=== PATIENT | female | born 1990 | race African-American/Black ===

== ENCOUNTER 2024-09-10 13:26 | Emergency (ER) | payer OTHER ==
[~2024-09-10] VITALS: Ht 167.6 cm; Wt 52.2 kg
[2024-09-10 14:49] VITALS: BP 124/74; O2SAT 99
== END 2024-09-10 14:30 | disposition home or self-care (01) ==
LOC: EDBD 13:26 → ER 13:26
DX: J00 Acute nasopharyngitis [common cold] (principal); H92.01 Otalgia, right ear
CPT/HCPCS: A4606; A4663

== ENCOUNTER 2025-01-18 12:34 | Emergency (ER) | payer MEDICAID, OTHER ==
[~2025-01-18] VITALS: Ht 167.6 cm; Wt 52.2 kg
[2025-01-18 12:42] VITALS: BP 108/62
[2025-01-18 13:59] LABS: *BILIRUBIN,URIN NEGATIVE (NEGATIVE); *BLOOD, URINE NEGATIVE (NEGATIVE); *CLARITY,URINE CLEAR (CLEAR); *COLOR,URINE YELLOW (YELLOW); *KETONES,URINE TRACE (NEGATIVE); *PROTEIN,URINE NEGATIVE (NEGATIVE); *UROBILINOGEN,URINE 0.2 E.U./dl (NORMAL); LEUKOCYTE ESTERASE ,URINE NEGATIVE (NEGATIVE); NITRITE, URINE NEGATIVE (NEGATIVE); UGLUCOSE NEGATIVE (NEGATIVE)
[2025-01-18 14:02] LABS: SQUAMOUS EPITHELIAL CELL,UR FEW /HPF (NONE SEEN); URINE AMORPHOUS URATE FEW /HPF
[2025-01-18 14:03] LABS: *URINE HCG, QUAL NEGATIVE (NEGATIVE)
[2025-01-18] MEDS ORDERED: FLUC150T PO (14:10)
[2025-01-18 14:34] VITALS: BP 110/68; TEMP 207.9; O2SAT 99
== END 2025-01-18 14:05 | disposition home or self-care (01) ==
LOC: ER 12:34
DX: B37.31 Acute candidiasis of vulva and vagina (principal)
CPT/HCPCS: 84703; A4606; A4663

== ENCOUNTER 2025-02-06 12:30 | Emergency (ER) | payer OTHER ==
[~2025-02-06] VITALS: Ht 167.6 cm; Wt 59.0 kg
[~2025-02-06 12:30] MED LIST: FLUC150T PO
[2025-02-06 12:40] VITALS: BP 128/88
[2025-02-06] MEDS ORDERED: ACET-2605 PO (12:58)
[2025-02-06] MEDS ORDERED: SULF1TAB48 PO (12:58)
[2025-02-06 13:10] VITALS: BP 128/88; TEMP 98; O2SAT 99
== END 2025-02-06 13:10 | disposition home or self-care (01) ==
LOC: ER 12:30
DX: S80.11XA Contusion of right lower leg, initial encounter (principal); L03.90 Cellulitis, unspecified; L29.9 Pruritus, unspecified; W51.XXXA Accidental striking against or bumped into by another person, initial encounter; Y93.89 Activity, other specified; Y92.89 Other specified places as the place of occurrence of the external cause; Y99.9 Unspecified external cause status
CPT/HCPCS: A4606; A4663

== ENCOUNTER 2025-02-25 16:30 | Emergency (ER) | payer OTHER ==
[~2025-02-25] VITALS: Ht 167.6 cm; Wt 54.4 kg
[~2025-02-25 16:30] MED LIST changes: +ACET-2605 PO; +SULF1TAB48 PO
[2025-02-25 16:36] VITALS: BP 120/75
[2025-02-25 17:47] LABS: PLATELET COUNT (AUTO) 213 K/uL (179-408); RED BLOOD CELL COUNT(AUTO) 4.55 MIL/uL (3.63-4.92); RED CELL DISTRIBUTION WIDTH 15.6 % (12.3-17.7); WHITE BLOOD COUNT (AUTO) 5.5 K/uL (3.8-11.8)
[2025-02-25 17:55] LABS: CREATININE 0.8 mg/dL (0.6-1.3); SODIUM SERUM 138.0 mmol/L (136-145); UREA NITROGEN, BLOOD 7.0 mg/dL (7-18)
[2025-02-25 17:58] LABS: *BILIRUBIN,URIN NEGATIVE (NEGATIVE); *BLOOD, URINE TRACE (NEGATIVE); *CLARITY,URINE CLEAR (CLEAR); *COLOR,URINE YELLOW (YELLOW); *KETONES,URINE NEGATIVE (NEGATIVE); *PROTEIN,URINE NEGATIVE (NEGATIVE); *UROBILINOGEN,URINE 0.2 E.U./dl (NORMAL); LEUKOCYTE ESTERASE ,URINE NEGATIVE (NEGATIVE); NITRITE, URINE NEGATIVE (NEGATIVE); UGLUCOSE NEGATIVE (NEGATIVE)
[2025-02-25 18:00] LABS: ASPARTATE AMINOTRANSFERASE 21.0 U/L (15-37); TOTAL PROTEIN, SERUM 7.6 g/dL (6.4-8.2)
[2025-02-25 18:06] LABS: SQUAMOUS EPITHELIAL CELL,UR FEW /HPF (NONE SEEN)
[2025-02-25] MEDS ORDERED: FLAS1KIT2 TP (18:48)
[2025-02-25] MEDS ORDERED: FLAS1EAC2 TP (18:48)
[2025-02-25 18:58] VITALS: BP 120/75; O2SAT 99
== END 2025-02-25 18:59 | disposition home or self-care (01) ==
LOC: ER 16:39
DX: R20.2 Paresthesia of skin (principal); E88.810 Metabolic syndrome; F41.9 Anxiety disorder, unspecified; L50.9 Urticaria, unspecified; Z88.7 Allergy status to serum and vaccine
CPT/HCPCS: 36415; 83735; 85025; A4606; A4663